=== PATIENT | female | born 2000 | race African-American/Black ===

== ENCOUNTER 2021-01-09 15:49 | Emergency (ER) | payer OTHER ==
[~2021-01-09] VITALS: Ht 162.6 cm; Wt 72.6 kg
[2021-01-09 16:19] LABS: URINE BILIRUBIN NEGATIVE (Negative); URINE BLOOD NEGATIVE (Negative); URINE CLARITY CLEAR; URINE COLOR YELLOW; URINE GLUCOSE-RANDOM* NEGATIVE (Negative); URINE KETONES NEGATIVE (Negative); URINE NITRITE-REFLEX NEGATIVE (Negative); URINE PROTEIN (DIPSTICK) NEGATIVE (Negative); URINE SPECIFIC GRAVITY 1.015 (1.005-1.035); URINE UROBILINOGEN 0.2 E.U./dl (0.2-1.0)
[2021-01-09 16:20] LABS: URINE LEUKOCYTES-REFLEX 2+ (Negative)
[2021-01-09 16:30] LABS: SQUAMOUS 4-10 Moderate /LPF (0-3)
[2021-01-09 16:31] LABS: BACTERIA-REFLEX 1-9 Few /HPF (None Seen); CASTS None Seen /LPF (None Seen); CRYSTALS None Seen /LPF (None Seen); URINE RBC None Seen /HPF (NONE SEEN); URINE WBC-REFLEX 6-15 Few /HPF (0-5); YEAST-REFLEX Present (None Seen)
[2021-01-09 18:00] VITALS: BP 110/64
[2021-01-09] MEDS ORDERED: MACROBID 100 M100 M1 PO (18:31)
== END 2021-01-09 18:30 | disposition home or self-care (01) ==
LOC: ER 15:49
PROVIDERS: Emergency Medicine Emergency Medical Services
DX: O23.41 Unspecified infection of urinary tract in pregnancy, first trimester (principal); O23.599 Infection of other part of genital tract in pregnancy, unspecified trimester; G43.909 Migraine, unspecified, not intractable, without status migrainosus